=== PATIENT | male | born 1945 | race Caucasian/White ===

== ENCOUNTER → 2022-04-21 | Outpatient (CLI) | payer MEDICARE, OTHER, SELFPAY ==
--- NOTE | 2022-04-21 07:22 | MRI_ITS ---
EXAM: MR LUMBAR SPINE WITHOUT INTRAVENOUS CONTRAST CLINICAL INDICATION: herniation L4-5 TECHNIQUE: Multiplanar and multisequence MR images of the lumbar spine without intravenous contrast. This report was created using [employer] report [employer] technology. COMPARISON: None. FINDINGS: VERTEBRAE: See below. SPINAL CORD: Normal. Normal position and signal intensity of the conus medullaris. SOFT TISSUES: Normal. DISCS/SPINAL CANAL/NEURAL FORAMINA: L1-2: Mild to moderate disc space narrowing with anterior vertebral body osteophytosis. Modic type I endplate changes are present. No disc herniation. No significant narrowing of the spinal canal or neural foramina. L2-3: Mild to moderate disc space narrowing no disc protrusion. Posterior ligamentous hypertrophy. No spinal stenosis. No significant narrowing of the neural foramina. L3-4: Mild disc space narrowing. No disc protrusion. Facet arthropathy and posterior ligamentous redundancy results in mild narrowing of the thecal sac. Facet arthropathy results in mild narrowing of the neural foramina. L4-5: No significant disc space narrowing. Mild disc bulging, ligamentous hypertrophy and facet arthropathy results in moderate bilateral neural foraminal narrowing and minor impression on the thecal sac. L5-S1: Moderate disc space narrowing. Grade 1 anterior listhesis associated with bilateral L5 spondylolysis. No disc herniation or spinal stenosis. Mild to moderate narrowing of the right neural foramen related to the facet arthropathy and anterior listhesis. MRI/Spine Lumbar (Routine) IMPRESSION: 1. Multilevel disc degeneration. 2. No significant spinal stenosis. 3. Multilevel neural foraminal narrowing as described. 4. 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 Electronically Signed: Von Alfonso MD at 11:12 EST ,
== END | disposition home or self-care (01) ==
PROVIDERS: PCP Internal Medicine; Referring Provider Orthopaedic Surgery; Visit Provider Orthopaedic Surgery
DX: M51.26 Other intervertebral disc displacement, lumbar region (principal)
CPT/HCPCS: 72148